=== PATIENT | male | born 1980 | race Two or more races ===

== ENCOUNTER 2020-05-04 22:31 | Inpatient (IN) | payer SELFPAY ==
[~2020-05-04] VITALS: Ht 162.6 cm; Wt 72.6 kg
[2020-05-04 23:08] LABS: Basophils # (auto) 0.1 10 ^3/uL (0-0.2); Basophils % (auto) 0.5 % (0.0-2.0); Eosinophils # (auto) 0.1 10 ^3/uL (0-0.8); Eosinophils % (auto) 1.1 % (0.0-7.0); Hematocrit 47.4 % (41.0-53.0); Hemoglobin 16.2 g/dL (13.5-17.5); Lymphocytes # (auto) 2.4 10 ^3/uL (0.4-5.4); Lymphocytes % (auto) 21.2 % (10.0-50.0); Mean Corpuscular Hemoglobin 29.3 pg (28.0-32.0); Mean Corpuscular Hgb Conc. 34.2 g/dL (32.0-36.0); Mean Corpuscular Volume 85.6 fL (80.0-100.0); Monocytes # (auto) 0.6 10 ^3/uL (0-1.3); Monocytes % (auto) 5.4 % (0.0-12.0); Neutrophils # (auto) 8.2 10 ^3/uL (1.6-8.6); Neutrophils % (auto) 71.8 % (37.0-80.0); Nucleated Red Blood Cells % 0.3 %; Platelet Count (auto) 382 10^3/uL (140-450); Red Blood Cells 5.53 10^6/uL (4.5-5.90); Red Cell Distribution Width 13.5 % (11.8-14.3); White Blood Cell 11.5 10^3/uL (4.4-10.8)
[2020-05-04 23:24] LABS: Urine Amorphous Crystal FEW /hpf (None Seen); Urine Bacteria FEW /hpf (None Seen); Urine Blood TRACE /uL (Negative); Urine Mucus FEW (None Seen); Urine Specific Gravity 1.025 (1.001-1.035); Urine WBC 2 /hpf (0 - 3)
[2020-05-04 23:29] LABS: Potassium 3.8 mmol/L (3.5-5.1)
[2020-05-04 23:34] LABS: Albumin 3.8 g/dL (3.4-5.0); BUN/Creatinine Ratio 13.1; Calcium 8.8 mg/dL (8.5-10.1)
[2020-05-04 23:36] LABS: Bilirubin, Total 0.3 mg/dL (0.2-1.0)
[2020-05-05] MEDS ORDERED: MORPHINE SULFATE 4 MG/ML SYR/VIAL IV ONE (03:45)
[2020-05-05] MEDS ORDERED: ONDANSETRON HCL 4 MG/2 ML VIAL IV ONE (03:45)
[2020-05-05] MEDS ORDERED: SODIUM CHLORIDE 0.9% 1,000 ML IV ONE ×2 (03:45→11:00)
[2020-05-05] MEDS ORDERED: KETOROLAC TROMETH 30 MG/ML 1ML VIAL IV ONE (03:45)
[2020-05-05] MEDS ORDERED: ONDANSETRON HCL 4 MG/2 ML VIAL IV PRN (06:30)
[2020-05-05] MEDS ORDERED: HYDROcodone-ACET 5/325MG TAB PO PRN (06:30)
[2020-05-05] MEDS ORDERED: SODIUM CHLORIDE 0.9% 1,000 ML IV SCH (06:30)
[2020-05-05] MEDS ORDERED: DEXTROSE (50%) 50ML SYRG IV PRN (06:30)
[2020-05-05] MEDS ORDERED: DOCUSATE SOD 100 MG CAP PO PRN (06:30)
[2020-05-05] MEDS ORDERED: TEMAZEPAM 15 MG CAP PO PRN (06:30)
[2020-05-05] MEDS ORDERED: MORPHINE SULF INJ 2 MG/ML SYRINGE 1ML IV PRN (06:30)
[2020-05-05] MEDS ORDERED: LORazepam 0.5 MG TAB PO PRN (06:30)
[2020-05-05] MEDS ORDERED: ACETAMINOPHEN 325 MG TAB PO PRN (06:30)
[2020-05-05] MEDS: TAMSULOSIN HYDROCHLORIDE 0.4 MG CAP PO SCH ×2 (07:43→09:23)
[2020-05-05] MEDS: cefTRIAXone 1GM/50ML D5W 50 ML IV SCH ×2 (07:44→09:22)
[2020-05-05] MEDS ORDERED: InsuLIN REG 1unit/0.01ml Soln (100units/ml) SC SCH (08:00)
[2020-05-05] MEDS ORDERED: ACCU-CHEK COMFORT CURVE STRIP VI SCH (08:00)
[2020-05-05 09:57] VITALS: BP 109/72
[2020-05-05] MEDS ORDERED: FINASTERIDE 5 MG TAB PO SCH (10:00)
[2020-05-05] MEDS ORDERED: MANNITOL FTV 25% 12.5 GM/50 ML 50 ML IV ONE (11:00)
[2020-05-06] MEDS ORDERED: TAMSULOSIN HYDROCHLORIDE 0.4 MG CAP PO SCH (18:00)
== END 2020-05-05 10:58 | disposition left against medical advice (07) | DRG 694 ==
LOC: ER 22:34 → OVERFLOW 22:35
PROVIDERS: ADMIT Hospitalist; ATTEND Internal Medicine
DX: N13.2 Hydronephrosis with renal and ureteral calculous obstruction (principal); R73.9 Hyperglycemia, unspecified
CPT/HCPCS: 36415; 74176; 80053; 81001; 82962; 83036; 85025; 96361; 96374; 96375; G0378; J0696; J1885; J2405